=== PATIENT | female | born 1980 | race Caucasian/White ===

== ENCOUNTER 2017-03-09 14:46 | Emergency (ER) | payer BC ==
[2017-03-09 14:55] VITALS: TEMP 98.1
--- NOTE | 2017-03-09 15:12 | EDPHY ---
H & P Stated Complaint: Occasional twinges across upper abd since last pm Time Seen by Provider: 03/09/17 15:12 - Personal History LMP (Females 10-55): 22-28 Days Ago Current Tetanus Diphtheria and Acellular Pertussis (TDAP): Yes - Medical/Surgical History Other PMH: chronic back pain and "pinched nerves" - Social History Smoking Status: Current some day smoker Constitutional: Initial Vital Signs Temperature (C) 36.7 C 03/09/17 14:51 Heart Rate 87 03/09/17 14:51 Respiratory Rate 16 03/09/17 14:51 Blood Pressure 129/83 H 03/09/17 14:51 O2 Sat (%) 98 03/09/17 14:51 O2 Delivery Mode Room Air Allergies/Adverse Reactions: No Known Allergies Allergy (Unverified 03/09/17 14:51) Home Medications: Medication Instructions Recorded NK [No Known Home Meds] 03/09/17 Medical Decision Making ED Course/Re-evaluation: CHIEF COMPLAINT: Chest/abdominal pain HISTORY OF PRESENT ILLNESS: The patient is a 36 y/o female complaining of intermittent, dull chest pain for the last 12 hours. Prior to falling asleep last night she noticed some mild mid thoracic back pain. In the middle of the night, she woke to take her dog out and noticed recurrent waves of "sore achiness" below her ribcage bilaterally every 10 seconds that lasts for 1 second at a time. Her pain has improved throughout the day, but is still present. She denies obvious obvious aggravating or alleviating factors, though notes social stress in her life recently. She has very mild sensation of shortness of breath when she thinks about the pain, but believes this is related to anxiety about her symptoms. She denies palpitations, diaphoresis, nausea, lightheadedness, acid reflux, recent trauma. No personal or familial cardiac disease history. REVIEW OF SYSTEMS: A 10 point review of systems was performed and is negative with the exception of the elements mentioned in the history of present illness. Cold over the last week, now resolved. Mild constipation. PHYSICAL EXAM: HR, BP, O2 Sat, RR. Temp noted General Appearance: Alert, well hydrated, appropriate, and non-toxic appearing. Head: Atraumatic without scalp tenderness or obvious injury Eyes: Pupils equal, round, reactive to light and accommodation, EOMI, no trauma , no injection. Nose: Atraumatic, no rhinorrhea, clear. Throat: Mucus membranes moist. Neck: Supple, nontender, no lymphadenopathy. Respiratory: No retractions, no distress, no wheezes, and no accessory muscle use. Lungs are clear to auscultation bilaterally. Cardiovascular: Regular rate and rhythm, no murmurs, rubs, or gallops. Good capillary refill all extremities. Gastrointestinal: Abdomen is soft, nontender, non-distended, no masses, no rebound, no guarding, no peritoneal signs. Musculoskeletal: Normal active ROM of all extremities, atraumatic. Neurological: Alert, appropriate, and interactive. The patient has non-focal cranial nerves, motor, sensory, and cerebellar exam. Skin: No rashes, good turgor, no nodules on palpation. Past medical history: Denies Past surgical history: Denies Family history: Noncontributory Social history: . Life stresses recently. DIAGNOSTICS/PROCEDURES/CRITICAL CARE TIME: The 12 lead EKG was interpreted by myself. Sinus mechanism. No ischemia. Abnormal R wave progression. See hard copy and/or "tracemaster" electronic copy for interpretation. DIFFERENTIAL DIAGNOSIS: The differential diagnosis for the patient's chest/ abdominal pain included but was not limited to anxiety, myocardial ischemia, pulmonary embolus, chest wall pain, pleural inflammation, pulmonary infectious causes, urinary tract infection, ectopic , cholecystitis, and appendicitis. MEDICAL DECISION MAKING: This is a healthy 36 y/o female who presents for evaluation of a 12-hour history of intermittent, dull, and improving upper abdominal pain. Her symptoms are more consistent with GI process and/or anxiety rather than cardiac. She has no cardiac risk factors and does not have a convincing story for cardiac etiology of her pain. She believes her symptoms are related to anxiety, but presented here due to recommendation of phone nursing line. She has a completely normal exam. Her EKG has some abnormal R wave progression, but no ischemia. She will be discharged home with standard follow up and return precautions. She is comfortable with this plan. Departure - Departure Disposition: Home, Routine, Self-Care Clinical Impression: Epigastric pain Condition: Good Instructions: Acute Abdominal Pain (ED) Additional Instructions: Follow up with your primary care provider for continued symptoms. Return to the ED for worsening of condition. Referrals: Crystal Carrington MD [[facility] Primary Care Provider] - As per Instructions Report Scribed for: Cristi Ledezma Report Scribed by: Deanna Winchester Date of Report: 03/09/17 Time of Report: 16:03
--- NOTE | 2017-03-09 15:40 | CPEKG ---
Heart Rate: 57 RR Interval: 1053 P-R Interval: 164 QRSD Interval: 100 QT Interval: 444 QTC Interval: 433 P Pilot Station: 49 QRS Pilot Station: 31 T Wave Pilot Station: 63 EKG Severity - ABNORMAL ECG - EKG Impression: SINUS RHYTHM EKG Impression: ABNORMAL Q SUGGESTS ANTERIOR INFARCT Electronically Signed By: Cristi Ledezma 09-Mar-2017 22:46:41
[2017-03-09 17:06] VITALS: BP 112/76; PULSE 63; RESP 20; O2SAT 96
== END 2017-03-09 17:06 | disposition home or self-care (01) ==
DX: R10.13 Epigastric pain (principal); F17.200 Nicotine dependence, unspecified, uncomplicated

== ENCOUNTER → 2017-03-24 | Outpatient (CLI) | payer BC | LOC: FIMAGING 07:11 | PROVIDERS: ATTEND Registered Nurse General Practice | DX: R10.11 Right upper quadrant pain (principal) ==

== ENCOUNTER → 2017-06-13 | Outpatient (CLI) | payer BC | LOC: FIMAGING 13:00 | PROVIDERS: ATTEND Internal Medicine Gastroenterology | DX: R07.89 Other chest pain (principal); R13.10 Dysphagia, unspecified ==

== ENCOUNTER → 2018-03-03 | Outpatient (CLI) | payer MEDICAID | LOC: BMCIMAGING 10:24 | PROVIDERS: ATTEND Family Medicine | DX: M54.5 Low back pain (principal) ==